=== PATIENT | male | born 1990 | race African-American/Black ===

== ENCOUNTER 2016-08-31 13:02 | Emergency (ER) | payer SELFPAY ==
[~2016-08-31] VITALS: Ht 190.5 cm; Wt 99.8 kg
[2016-08-31 13:23] VITALS: BP 150/99
[2016-08-31 14:23] LABS: OBC FLU VALID
[2016-08-31] MEDS ORDERED: ONDA4TAB10 SL (14:53)
--- NOTE | 2016-08-31 14:53 | PHYS DOC ---
Past Medical History Past Medical History: No Pertinent History Past Surgical History: No Surgical History Alcohol Use: None Drug Use: None Adult General Chief Complaint Chief Complaint: FLU SYMPTOM HPI HPI Patient is a 26 year old medical presents with nausea vomiting and diarrhea for 3 days as well as body aches and chills, he is worried he could have the flu and would like to be tested. Review of Systems Review of Systems Constitutional: chills [] Eyes: Denies change in visual acuity, redness, or eye pain [] HENT: Denies nasal congestion or sore throat [] Respiratory: Denies cough or shortness of breath [] Cardiovascular: No additional information not addressed in HPI [] GI: Nausea and vomiting diarrhea [] : Denies dysuria or hematuria [] Musculoskeletal: Denies back pain or joint pain [] Integument: Denies rash or skin lesions [] Neurologic: Denies headache, focal weakness or sensory changes [] Endocrine: Denies polyuria or polydipsia [] Allergies Allergies Allergies Coded Allergies Type Severity Reaction Last Updated Verified No Known Drug Allergies 08/31/16 No Physical Exam Physical Exam Constitutional: Well developed, well nourished, no acute distress, non-toxic appearance. [] HENT: Normocephalic, atraumatic, bilateral external ears normal, oropharynx moist, no oral exudates, nose normal. [] Eyes: PERRLA, EOMI, conjunctiva normal, no discharge. [] Neck: Normal range of motion, no tenderness, supple, no stridor. [] Cardiovascular:Heart rate regular rhythm, no murmur [] Lungs & Thorax: Bilateral breath sounds clear to auscultation [] Abdomen: Bowel sounds normal, soft, no tenderness, no masses, no pulsatile masses. [] Skin: Warm, dry, no erythema, no rash. [] Back: No tenderness, no CVA tenderness. [] Extremities: No tenderness, no cyanosis, no clubbing, ROM intact, no edema. [] Neurologic: Alert and oriented X 3, normal motor function, normal sensory function, no focal deficits noted. [] Psychologic: Affect normal, judgement normal, mood normal. [] Current Patient Data Vital Signs Vital Signs Date Time Temp Pulse Resp B/P Pulse Ox O2 Delivery O2 Flow Rate FiO2 08/31/16 13:23 98.4 84 18 95 Room Air 98.4 Lab Values Laboratory Tests Test 08/31/16 13:27 Influenza Type A Antigen Negative (NEGATIVE) Influenza Type B Antigen Positive (NEGATIVE) EKG EKG [] Radiology/Procedures Radiology/Procedures [] Course & Med Decision Making Course & Med Decision Making Pertinent Labs and Imaging studies reviewed. (See chart for details) Patient is in the ED with flulike symptoms including chills nausea vomiting and diarrhea for 3 days. Positive influenza B. Discharged with Zofran. Instructed push fluids maintain good hand hygiene. Follow-up with PCP in one week, provided return precautions and discharged in stable condition. Dragon Disclaimer Dragon Disclaimer This electronic medical record was generated, in whole or in part, using a voice recognition dictation system. Departure Departure Impression: Primary Impression: Influenza B Additional Impression: Vomiting and diarrhea Disposition: HOME, SELF-CARE Condition: STABLE Referrals: NO PCP (PCP) Follow-up with your doctor in one week Patient Instructions: Diarrhea, Nausea and Vomiting Additional Instructions: You tested positive for influenza B, you also have diarrhea and vomiting which are viral symptoms consistent with influenza. Push fluids, maintain good hand hygiene, take the prescribed medicines as needed for nausea vomiting. The symptoms will run its own course, come back to the ED if symptoms worsen or you have other concerns. Scripts Ondansetron (Zofran Odt)4 Mg Tab.rapdis1 Tab SL Q8HRS #15 TAB Prov:AJ MEDEL APRN 08/31/16 Problem Qualifiers AJ MEDEL APRN Aug 31, 2016 14:53
[2016-09-01 08:55] LABS: NEGATIVE OBC STREP NEG; POSITIVE OBC STREP POS
== END 2016-08-31 15:05 | disposition home or self-care (01) ==
LOC: ER 13:02
DX: R11.2 Nausea with vomiting, unspecified (principal); R19.7 Diarrhea, unspecified; J10.1 Influenza due to other identified influenza virus with other respiratory manifestations
CPT/HCPCS: 87070; 87804; 87880; 99284